=== PATIENT | female | born 1990 | race Caucasian/White ===

== ENCOUNTER 2019-05-16 12:55 | Emergency (ER) | payer BC ==
[2019-05-16 13:01] VITALS: RESP 18; TEMP 97.7
--- NOTE | 2019-05-16 13:54 | XR ---
EXAMINATION TYPE: XR chest 2V DATE OF EXAM: 05/16/2019 COMPARISON: NONE HISTORY: Foreign body. Patient swallowed a portion of a fork. TECHNIQUE: Frontal and lateral views of the chest are obtained. FINDINGS: There is no focal air space opacity, pleural effusion, or pneumothorax seen. The cardiac silhouette size is within normal limits. The osseous structures are intact. IMPRESSION: No acute cardiopulmonary process. No radiopaque foreign body.
--- NOTE | 2019-05-16 13:56 | XR ---
EXAMINATION TYPE: XR KUB DATE OF EXAM: 05/16/2019 1:49 PM CLINICAL HISTORY: Foreign body. Patient swallowed a portion of a fork. TECHNIQUE: Single upright of the abdomen is obtained. COMPARISON: None. FINDINGS: There are probable calculi within the gallbladder. Mild degree colonic fecal stasis. No dil ated large or small bowel. No suspicious radiopaque foreign body. Midline intrauterine device is seen . Lung bases are well aerated. No pneumoperitoneum. IMPRESSION: Nonobstructive bowel gas pattern. No suspicious radiopaque foreign body.
[2019-05-16] MEDS ORDERED: METOCLOPRAMIDE 5 MG/ML 2 ML VIAL IVP STA (14:35)
[2019-05-16 14:41] VITALS: BP 102/79; PULSE 73
--- NOTE | 2019-05-16 14:46 | ED ---
General Adult HPI - General Chief complaint: Skin/Abscess/Foreign Body Stated complaint: swallowed plastic fork mark Time Seen by Provider: 05/16/19 13:12 Source: patient, RN notes reviewed, old records reviewed Mode of arrival: ambulatory Limitations: no limitations - History of Present Illness Initial comments: 29-year-old female who presents today for eval for concern for epigastric substernal pain after actively swallowing a piece of plastic fork. She reports that she swallowed a fork mark last night. She states since then she's been having some epigastric substernal pain. Patient states that she has had no vomiting. She reports she was able eat some applesauce today and did have some chicken afterwards. Patient reports that she's had no fevers or chills, she denies any chest pain or shortness of breath. She did have a bowel movement today noted no blood. - Related Data Allergies Allergy/AdvReac Type Severity Reaction Status Date / Time No Known Allergies Allergy Verified 05/16/19 12:57 Review of Systems ROS Statement: Those systems with pertinent positive or pertinent negative responses have been documented in the HPI. ROS Other: All systems not noted in ROS Statement are negative. Past Medical History Past Medical History: No Reported History History of Any Multi-Drug Resistant Organisms: None Reported Past Surgical History: Section Past Psychological History: No Psychological Hx Reported Smoking Status: Current every day smoker Past Alcohol Use History: None Reported Past Drug Use History: Marijuana General Exam - General Exam Comments Initial Comments: 29-year-old female. Alert and oriented. Patient appears in no significant distress. Limitations: no limitations Eye exam: Present: normal appearance, PERRL, EOMI. Absent: scleral icterus, conjunctival injection, periorbital swelling ENT exam: Present: normal exam, mucous membranes moist Neck exam: Present: normal inspection. Absent: tenderness, meningismus, lymphadenopathy Respiratory exam: Present: normal lung sounds bilaterally. Absent: respiratory distress, wheezes, rales, rhonchi, stridor Cardiovascular Exam: Present: regular rate, normal rhythm, normal heart sounds. Absent: systolic murmur, diastolic murmur, rubs, gallop, clicks GI/Abdominal exam: Present: soft, normal bowel sounds. Absent: distended, tenderness, guarding, rebound, rigid Extremities exam: Present: normal inspection, full ROM, normal capillary refill. Absent: tenderness, pedal edema, joint swelling, calf tenderness Back exam: Present: normal inspection Neurological exam: Present: alert, oriented X3, CN II-XII intact Psychiatric exam: Present: normal affect, normal mood Skin exam: Present: warm, dry, intact, normal color. Absent: rash Course Vital Signs 05/16/19 05/16/19 12:57 14:41 Temperature 97.7 F Pulse Rate 102 H 73 Respiratory 18 18 Rate Blood Pressure 125/85 102/79 O2 Sat by Pulse 100 100 Oximetry Medical Decision Making - Medical Decision Making [id number] female presents today for eval her concern for possible retained esophageal foreign body. She instantly piece of a fork mark yesterday. She did she contact [facility] did tolerate some applesauce today. She was a substernal pain. At this time Patient will tolerate drinking warm water and tolerated GI cocktail. No vomiting. Chest x-ray and KUB showed no evidence of free air perforation. She had a bowel movement today which showed no blood as well. We discussed this with Dr. Boo who discussed the case with Dr. Bowman. Discussed at this time it is likely irritated from passing through the distal esophagus but Patient were to have persistent pain after today with using a GI cocktail and Maalox the Patient to return tomorrow for reevaluation and possible scope that time. Patient nurse's treatment plan will comply. Discussed strict return parameters that there is any severe abdominal pain or syncope emesis or hemataemesis. - Radiology Data Radiology results: report reviewed KUBt x-ray shows no instructed bowel gas pattern. No sepsis shows radiopaque foreign body. Chest x-ray shows no acute hypopnea process. No radiopaque foreign body. Disposition Clinical Impression: Foreign body ingestion Disposition: HOME SELF-CARE Condition: Good Additional Instructions: If Patient has persistent vomiting, or worsening pain as of tomorrow during the day Patient may need to return for reevaluation and the scope. Patient should have clear liquids and warm fluids to help ease the esophageal irritation. Patient also recommended to use Maalox liquid medication help with coating the esophagus and stomach. Return to emergency department as well as there is any severe abdominal pain. Is patient prescribed a controlled substance at d/c from ED?: No Referrals: Loi Wang MD [Primary Care Provider] - 1-2 days Sumanth Bowman MD [STAFF PHYSICIAN] - 1-2 days Time of Disposition: 15:26
[2019-05-16] MEDS ORDERED: MAG HYDROX/AL HYDROX/SIMETH 30 ML, HYOSCYAMINE ELIXIR 10 ML, LIDOCAINE VISCOUS 2% 10 ML PO STA ×3 (15:07)
== END 2019-05-16 15:38 | disposition home or self-care (01) ==
LOC: EC 12:55
DX: T18.198A Other foreign object in esophagus causing other injury, initial encounter (principal); F17.200 Nicotine dependence, unspecified, uncomplicated; Y93.89 Activity, other specified
CPT/HCPCS: 99284; 96374; 71046; 74018; J2765